=== PATIENT | male | born 1965 | race Caucasian/White ===

== ENCOUNTER 2022-02-06 22:17 | Observation (INO) ==
[2022-02-06] MEDS ORDERED: SODIUM CHLORIDE 0.9% 1000ML 1,000 ML IV STA (22:35)
[2022-02-06] MEDS ORDERED: SODIUM CHLORIDE 0.9% 1000ML 1,000 ML IV ONE (22:35)
[2022-02-06] MEDS ORDERED: SODIUM CHLORIDE 0.9% 1000ML 2,000 ML IV ONE (22:48)
[2022-02-06 22:52] LABS: iSTAT Creatinine 3.1 mg/dl (0.6-1.3); iSTAT Hemoglobin 14.6 g/dl (14.0-18.0); iSTAT Ionized Calcium 0.97 mmol/l (1.12-1.32); iSTAT Potassium 3.9 mmol/L (3.3-5.0)
[2022-02-06 22:53] LABS: Basophils % (auto) 1.3 %; Eosinophils # (auto) 0.21 K/uL (0-0.50); Eosinophils % (auto) 2.7 %; Hematocrit (blood only) 43.4 % (40.1-51.0); Hemoglobin 14.5 g/dl (14.0-18.0); Immature Granulocytes # (auto) 0.04 K/uL (0.00-0.02); Immature Granulocytes % (auto) 0.5 %; Lymphocytes # (auto) 2.94 K/uL (1.2-3.4); Lymphocytes % (auto) 37.8 %; Mean Corpuscular Hemoglobin 29.5 pg (25.0-34.0); Mean Corpuscular Hgb Conc 33.4 g/dL (32.0-36.0); Mean Corpuscular Volume 88.4 fL (80.0-100.0); Mean Platelet Volume 8.8 fL (9.4-12.4); Neutrophils # (auto) 3.79 K/uL (1.4-6.5); Neutrophils % (auto) 48.7 %; Platelet Count 231 K/uL (130-400); RDW Coefficient of Variation 12.8 % (11.5-14.5); RDW Standard Deviation 41.1 fL (36.4-46.3); Red Blood Count 4.91 M/uL (4.63-6.08); White Blood Count 7.78 K/ul (4.8-10.8)
--- NOTE | 2022-02-06 22:54 | Emergency Department Note ---
History of Present Illness General Chief complaint: Chest Pain Stated complaint: SYNCOPE, CHEST PAIN Time Seen by Provider: 02/06/22 22:21 History of Present Illness This 56-year-old presents to the ER complaining of severe chest epigastric pain who passed out at the bar while drinking bourbon today who's blood pressure was 60/40 per EMS Location: Chest epigastric left upper quadrant Quality: Painful Severity: Moderate Duration: Tonight Timing: Tonight Context: Patient collapsed at the bar and was brought in Modifying factors: better with rest; worse with activity Patient states has been drinking bourbon today. He is here visiting family. Patient states he developed chest pain and epigastric pain and then passed out at the bar. Patient states he feels weak but no localized deficits. Patient denies fevers, vomiting, diarrhea, recent illness, drug use. Patient states he only drinks on the weekends. Home Medications Medication Instructions Recorded Confirmed Type bupropion HCl 300 mg 24 hr tablet, 300 mg PO DAILY 10/14/18 02/06/22 History extended release lisinopril 40 mg tablet 40 mg PO DAILY 10/14/18 02/06/22 History amlodipine 5 mg tablet 5 mg PO HS 02/06/22 02/06/22 History hydrochlorothiazide 25 mg tablet 25 mg PO DAILY 02/06/22 02/06/22 History omeprazole magnesium 20 mg 20 mg PO DAILY 02/06/22 02/06/22 History tablet,delayed release (Prilosec OTC) Allergies Allergy/AdvReac Type Severity Reaction Status Date / Time No Known Allergies Allergy Verified 02/06/22 23:40 Past Med/Surg History Medical History (Updated 02/07/22 @ 01:45 by Nikolas De La Vega MD) Anxiety Depression HTN (hypertension) Panic attacks Surgical History (Updated 02/06/22 @ 22:50 by Jennifer Huang PA-C) History of appendectomy Social History Smoking Status: Unknown if ever smoked Hx Alcohol Use: No Hx Substance Use: No Preferred Language: Setswana Communication Ability: Effective [employer] Required: No Beliefs That Will Affect Care: None Current Living Situation: Other Feels Safe at Home: Yes Safety Concerns: Feels Safe At This Time Review of Systems A total of 10 systems reviewed and were otherwise negative Physical Exam Vital Signs Vital Signs - 24 hr 02/06/22 22:39 02/06/22 22:39 02/06/22 22:39 Pulse Rate 93 H Pulse Rate [Right Finger] 93 H Respiratory Rate 18 18 Respiratory Effort / Characteristics Non-Labored Respiratory Depth Normal Blood Pressure 84/54 L Blood Pressure [Right Arm] 84/54 L Blood Pressure Mean 64 Blood Pressure Mean [Right Arm] 64 Blood Pressure Position [Right Arm] Pulse Oximetry 98 98 Oxygen Delivery Method Room Air Room Air Room Air Sepsis Recent Fever Within 48 Hours No Sepsis New/Unexplained Change in Mental Status No Sepsis Action Taken by Nursing No Action Required Pulse Oximetry Post Tiitration 98 02/06/22 22:39 02/07/22 00:19 Pulse Rate Pulse Rate [Right Finger] 95 H Respiratory Rate 20 Respiratory Effort / Characteristics Non-Labored Spontaneous Respiratory Depth Normal Blood Pressure Blood Pressure [Right Arm] 102/60 Blood Pressure Mean Blood Pressure Mean [Right Arm] 74 Blood Pressure Position [Right Arm] Sitting Pulse Oximetry 98 97 Oxygen Delivery Method Room Air Sepsis Recent Fever Within 48 Hours Sepsis New/Unexplained Change in Mental Status Sepsis Action Taken by Nursing Pulse Oximetry Post Tiitration VITALS: Vitals are noted on the nurse's note and reviewed by myself. Vital signs hypotensive. GENERAL: White male pale diaphoretic, in acute distress SKIN: The skin was without rashes, erythema, edema, or bruising. There is no tenting of the skin. Capillary reflex less than 2 seconds. HEAD: Normocephalic atraumatic. EARS: External auditory canals clear, EYES: Pupils equal round and reactive to light and accommodation. Conjunctivae without injection, sclerae without icterus. Extraocular movements intact. NOSE: Patent, turbinates without inflammation or discharge. No sinus tenderness. MOUTH: Mucous membranes dry. Pharynx without erythema or exudate. Uvula midline. Airway patent. Tongue does not deviate. NECK: Supple without nuchal rigidity. No lymphadenopathy. No thyromegaly. Cervical spine is nontender. No JVD. HEART: Regular rate and rhythm LUNGS: Clear to auscultation bilaterally without wheezes, rales or rhonchi. No retractions or accessory muscle use. ABDOMEN: Positive bowel sounds x 4. Normal tympanic percussion. Soft, tender to palpation epigastric left upper quadrant, without masses or organomegaly. Zamora sign negative. No guarding or rebound tenderness. No CVA tenderness MUSCULOSKELETAL: No muscle atrophy, erythema, or edema noted. Radial and pedal pulses +2 equal and present throughout NEURO: Patient was alert and oriented to person place and time. Normal sensation to light and sharp touch. No focal neurological deficits. Course Administered Medications Lactated Ringer's (Lr) 1,000 mls @ 100 mls/hr IV .Q10H LANCE Stop: 02/07/22 16:59 Last Admin: 02/07/22 03:00 Dose: 100 mls/hr Documented By: ZAIRE Discontinued Medications Sodium Chloride (Nss 1000ml) 1,000 mls @ 999 mls/hr IV .Q1H1M STA Stop: 02/06/22 23:35 Last Infusion: 02/06/22 23:52 Dose: 0 mls/hr Documented By: Admin: 02/06/22 23:00 Dose: 999 mls/hr Documented By: RADHA Sodium Chloride (Nss 1000ml) 1,000 mls @ 999 mls/hr IV .Q1H1M ONE Stop: 02/06/22 23:35 Last Infusion: 02/06/22 23:52 Dose: 0 mls/hr Documented By: Admin: 02/06/22 23:20 Dose: 999 mls/hr Documented By: RADHA Sodium Chloride (Nss 1000ml) 2,000 mls @ 999 mls/hr IV .Q2H1M ONE Stop: 02/07/22 00:48 Last Infusion: 02/06/22 23:52 Dose: 0 mls/hr Documented By: Admin: 02/06/22 23:00 Dose: 999 mls/hr Documented By: RADHA Critical Care Time I have personally spent 35 minutes of critical care time in the direct management of this patient. This includes bedside care, interpretation of diagnostic studies, and testing, discussion with consultants, patient, and family members, and other required patient management activities. This 35 minutes is in excess of all separately billable procedures. Medical Decision Making Medical Records Attestation: I reviewed the patient's medical records. Home Medications Current Medication List: was personally reviewed by me Laboratory Data Attestation: I reviewed the patient's lab results. Result diagrams: 02/06/22 22:30 02/07/22 02:18 Lab Results 02/06/22 02/06/22 02/06/22 Range/Units 22:30 22:30 22:30 WBC 7.78 (4.8-10.8) K/ul RBC 4.91 (4.63-6.08) M/uL Hgb 14.5 (14.0-18.0) g/dl POC Hgb (14.0-18.0) g/dl Hct 43.4 (40.1-51.0) % POC Hct (42-52) % MCV 88.4 (80.0-100.0) fL MCH 29.5 (25.0-34.0) pg MCHC 33.4 (32.0-36.0) g/dL RDW Std Deviation 41.1 (36.4-46.3) fL RDW Coeff of Reta 12.8 (11.5-14.5) % Plt Count 231 (130-400) K/uL MPV 8.8 L (9.4-12.4) fL Immature Gran % (Auto) 0.5 % Neut % (Auto) 48.7 % Lymph % (Auto) 37.8 % [place] % (Auto) 9.0 % Eos % (Auto) 2.7 % Baso % (Auto) 1.3 % Neut # (Auto) 3.79 (1.4-6.5) K/uL Lymph # (Auto) 2.94 (1.2-3.4) K/uL [place] # (Auto) 0.70 (0.24-0.82) K/uL Eos # (Auto) 0.21 (0-0.50) K/uL Baso # (Auto) 0.10 (0-0.2) K/uL Immature Gran # (Auto) 0.04 H (0.00-0.02) K/uL POC Sodium (135-144) mmol/L Sodium 136 (136-145) mmol/L POC Potassium (3.3-5.0) mmol/L Potassium 3.9 (3.5-5.1) mmol/L POC Chloride (101-112) mmol/L Chloride 105 (98-107) mmol/L Carbon Dioxide 20 L (21-32) mmol/L POC Total CO2 (24-31) mmol/L Anion Gap 11 (3-11) POC Anion Gap (16-25) mmol/L POC BUN (7-18) mg/dl BUN 33 H (6-23) mg/dl Creatinine 2.66 H (0.6-1.4) mg/dl POC Creatinine (0.6-1.3) mg/dl Est Cr Clr Drug Dosing 35.5 ml/min Est GFR ( Amer) 29.7 ml/min Est GFR (Non-Af Amer) 25.7 ml/min BUN/Creatinine Ratio 12.4 (10-20) Glucose 103 H (70-99(Fasting)) mg/dl POC Glucose (other) (70-99) mg/dl Lactate (0.4-2.0) mmol/L Calcium 8.0 L (8.5-10.1) mg/dl POC Ioniz Calcium Naman (1.12-1.32) mmol/l Total Bilirubin 0.5 (0.2-1.0) mg/dl AST 22 (13-39) U/L ALT 28 (7-52) U/L Alkaline Phosphatase 51 (34-104) U/L Total Creatine Kinase 158 (30-223) U/L Troponin I High Sens 2.8 (0-20) pg/ml Total Protein 5.9 L (6.0-8.3) gm/dl Albumin 3.8 (3.4-5.0) gm/dl Globulin 2.1 L (2.5-4.0) gm/dl Albumin/Globulin Ratio 1.8 (0.9-2) Lipase 101 H (11-82) U/L Ethyl Alcohol mg/dL 123.6 H (<10.0) mg/dl SARS-CoV-2, RNA, NAAT (NEGATIVE) 02/06/22 02/06/22 02/07/22 Range/Units 22:39 23:50 00:10 WBC (4.8-10.8) K/ul RBC (4.63-6.08) M/uL Hgb (14.0-18.0) g/dl POC Hgb 14.6 (14.0-18.0) g/dl Hct (40.1-51.0) % POC Hct 43 (42-52) % MCV (80.0-100.0) fL MCH (25.0-34.0) pg MCHC (32.0-36.0) g/dL RDW Std Deviation (36.4-46.3) fL RDW Coeff of Reta (11.5-14.5) % Plt Count (130-400) K/uL MPV (9.4-12.4) fL Immature Gran % (Auto) % Neut % (Auto) % Lymph % (Auto) % [place] % (Auto) % Eos % (Auto) % Baso % (Auto) % Neut # (Auto) (1.4-6.5) K/uL Lymph # (Auto) (1.2-3.4) K/uL [place] # (Auto) (0.24-0.82) K/uL Eos # (Auto) (0-0.50) K/uL Baso # (Auto) (0-0.2) K/uL Immature Gran # (Auto) (0.00-0.02) K/uL POC Sodium 139 (135-144) mmol/L Sodium (136-145) mmol/L POC Potassium 3.9 (3.3-5.0) mmol/L Potassium (3.5-5.1) mmol/L POC Chloride 104 (101-112) mmol/L Chloride (98-107) mmol/L Carbon Dioxide (21-32) mmol/L POC Total CO2 19 L (24-31) mmol/L Anion Gap (3-11) POC Anion Gap 20.0 (16-25) mmol/L POC BUN 31 H (7-18) mg/dl BUN (6-23) mg/dl Creatinine (0.6-1.4) mg/dl POC Creatinine 3.1 H (0.6-1.3) mg/dl Est Cr Clr Drug Dosing ml/min Est GFR ( Amer) ml/min Est GFR (Non-Af Amer) ml/min BUN/Creatinine Ratio (10-20) Glucose (70-99(Fasting)) mg/dl POC Glucose (other) 108 H (70-99) mg/dl Lactate 2.0 (0.4-2.0) mmol/L Calcium (8.5-10.1) mg/dl POC Ioniz Calcium Naman 0.97 L (1.12-1.32) mmol/l Total Bilirubin (0.2-1.0) mg/dl AST (13-39) U/L ALT (7-52) U/L Alkaline Phosphatase (34-104) U/L Total Creatine Kinase (30-223) U/L Troponin I High Sens (0-20) pg/ml Total Protein (6.0-8.3) gm/dl Albumin (3.4-5.0) gm/dl Globulin (2.5-4.0) gm/dl Albumin/Globulin Ratio (0.9-2) Lipase (11-82) U/L Ethyl Alcohol mg/dL (<10.0) mg/dl SARS-CoV-2, RNA, NAAT NEGATIVE (NEGATIVE) 02/07/22 Range/Units 00:10 WBC (4.8-10.8) K/ul RBC (4.63-6.08) M/uL Hgb (14.0-18.0) g/dl POC Hgb (14.0-18.0) g/dl Hct (40.1-51.0) % POC Hct (42-52) % MCV (80.0-100.0) fL MCH (25.0-34.0) pg MCHC (32.0-36.0) g/dL RDW Std Deviation (36.4-46.3) fL RDW Coeff of Reta (11.5-14.5) % Plt Count (130-400) K/uL MPV (9.4-12.4) fL Immature Gran % (Auto) % Neut % (Auto) % Lymph % (Auto) % [place] % (Auto) % Eos % (Auto) % Baso % (Auto) % Neut # (Auto) (1.4-6.5) K/uL Lymph # (Auto) (1.2-3.4) K/uL [place] # (Auto) (0.24-0.82) K/uL Eos # (Auto) (0-0.50) K/uL Baso # (Auto) (0-0.2) K/uL Immature Gran # (Auto) (0.00-0.02) K/uL POC Sodium (135-144) mmol/L Sodium (136-145) mmol/L POC Potassium (3.3-5.0) mmol/L Potassium (3.5-5.1) mmol/L POC Chloride (101-112) mmol/L Chloride (98-107) mmol/L Carbon Dioxide (21-32) mmol/L POC Total CO2 (24-31) mmol/L Anion Gap (3-11) POC Anion Gap (16-25) mmol/L POC BUN (7-18) mg/dl BUN (6-23) mg/dl Creatinine (0.6-1.4) mg/dl POC Creatinine (0.6-1.3) mg/dl Est Cr Clr Drug Dosing ml/min Est GFR ( Amer) ml/min Est GFR (Non-Af Amer) ml/min BUN/Creatinine Ratio (10-20) Glucose (70-99(Fasting)) mg/dl POC Glucose (other) (70-99) mg/dl Lactate (0.4-2.0) mmol/L Calcium (8.5-10.1) mg/dl POC Ioniz Calcium Naman (1.12-1.32) mmol/l Total Bilirubin (0.2-1.0) mg/dl AST (13-39) U/L ALT (7-52) U/L Alkaline Phosphatase (34-104) U/L Total Creatine Kinase (30-223) U/L Troponin I High Sens 2.5 (0-20) pg/ml Total Protein (6.0-8.3) gm/dl Albumin (3.4-5.0) gm/dl Globulin (2.5-4.0) gm/dl Albumin/Globulin Ratio (0.9-2) Lipase (11-82) U/L Ethyl Alcohol mg/dL (<10.0) mg/dl SARS-CoV-2, RNA, NAAT (NEGATIVE) Imaging Data Attestation: I personally reviewed and interpreted this imaging study as follows: Radiologist's Impression: Abdomen/Pelvis CT 02/06/22 22:35 CT abd pelvis wo con CLINICAL HISTORY: severe epigastric pain, syncope, hypotensive TECHNIQUE: Helical axial images of the abdomen and pelvis were obtained. Automated dose lowering techniques and/or adjustment according to patient size were utilized for this exam. This exam was performed without intravenous contrast. COMPARISON: None available at the time of this dictation. FINDINGS: Lower chest: For findings above the diaphragm, please see CT chest performed same day. Liver: Unremarkable. No focal lesions are seen. Gallbladder and biliary tree: No calcified gallstones. Normal caliber wall. No intra- or extrahepatic biliary ductal dilation. Pancreas: Unremarkable, no focal lesions. Spleen: Splenule is incidentally noted. Adrenals: Unremarkable. Kidneys and ureters: Perinephric stranding is noted bilaterally. Bladder: Limited evaluation due to underdistention. Reproductive organs: Unremarkable. Bowel: Diverticulosis is seen without evidence of diverticulitis. There is a small hiatal hernia. Fatty infiltration is noted in the wall of the colon and duodenum which can be seen in inflammatory bowel disease. Lymph nodes Retroperitoneal: Unremarkable. Pelvic: Unremarkable. Mesenteric: Unremarkable. Peritoneum: Normal. Vessels: Unremarkable. Diminutive appearance of the inferior vena cava at the level of the liver which can be seen in hypovolemia. Abdominal wall: Bilateral fat-containing inguinal hernias are seen. Bones: Degenerative changes in the visualized spine. IMPRESSION: 1. No acute abnormalities are seen. There is flattening of the IVC which can be seen in hypovolemia. 2. A hiatal hernia is seen, clinical correlation for reflux is recommended in this patient with epigastric pain. ACT 112: Negative or not required by law. Electronically signed by: Bear Sage M.D. 02/06/2022 11:[address] 02/06/22 22:35 CT chest diagnostic wo con CLINICAL HISTORY: severe epigastric pain, syncope, hypotensive TECHNIQUE: Multidetector row helical CT of the chest was performed. Coronal and sagittal reformations were obtained. Automated dose lowering techniques and/or adjustment according to patient size were utilized for this exam. CT DOSE: 889.65 mGy.cm Comparison: Comparison is made to chest radiograph 02/06/2022 and 11 FINDINGS: Lungs and pleura: Atelectasis versus scarring is seen in the dependent portions of the lungs. Heart and pericardium: Heart size is normal. No pericardial effusion. Vessels: Unremarkable. Incidentally noted is a tiny locule of air in the venous system likely due to venous injection. Mediastinum and roseann: Unremarkable. Chest wall and lower neck: Unremarkable. Abdomen: For findings below the diaphragm, please refer to CT of the abdomen dated the same. Bones: Degenerative changes in the thoracic spine. IMPRESSION: Unremarkable evaluation of the chest. ACT 112: Negative or not required by law. Electronically signed by: Bear Sage M.D. 02/06/2022 11:24 PM MDM Narrative Prior records/ancillary studies reviewed. Triage Nursing notes reviewed. Additional history obtained from nursing. The patient's history was concerning for syncope. Differential diagnosis: Etiologies such as vasovagal event, infection, hypoglycemia, electrolyte abnormalities, cardiac sources, intracerebral event, toxicologic, neurologic, as well as others were entertained. Physical examination: As above ER treatment provided: IV hydration with normal saline x3 L On reassessment the patient felt better. Emergent FAST POCUS performed by me. Subxiphoid view and parasternal long shows no pericardial effusion or tamponade. Abdominal views demonstrate no free fluid in the hepatorenal space, splenorenal space, or around the bladder. No free fluid. Normal FAST per my interpretation. An order was placed for continuous cardiac monitoring. The monitor shows a rate of 60-1 50 with a sinus rhythm. Diagnostics interpretation by me: #1 ECG: Ordered for syncope EKG: Normal sinus, normal intervals, no acute ST-T wave changes. Impression normal sinus rhythm interpreted by myself I think arrhythmia is unlikely. EKG shows normal sinus rhythm with no interval abnormalities such as QT prolongation or WPW. There are no findings to suggest Brugada syndrome. Cardiac monitoring in the emergency department reveals no tachycardic or bradycardic dysrhythmia. Hypertrophic cardiomyopathy was considered but there are no clear historical elements pointing toward this. EKG is not suggestive. The QRS voltage is not extremely large and there are no suggestive Q waves. #2 ECG: Ordered for CP EKG: Normal sinus, normal intervals, no acute ST-T wave changes. Impression normal sinus rhythm interpreted by myself I think arrhythmia is unlikely. EKG shows normal sinus rhythm with no interval abnormalities such as QT prolongation or WPW. There are no findings to suggest Brugada syndrome. Cardiac monitoring in the emergency department reveals no tachycardic or bradycardic dysrhythmia. Hypertrophic cardiomyopathy was considered but there are no clear historical elements pointing toward this. EKG is not suggestive. The QRS voltage is not extremely large and there are no suggestive Q waves. The labs revealed i-STAT shows acute renal failure with creat of 3.1 Imaging studies: As above Consultation: A consultation was placed with the hospitalist. The case was discussed and diagnostics were reviewed. The patient was evaluated in the ER for further treatment. This appears to be consistent with acute renal failure with dehydration and hypotension. Blood pressure improved with fluids. Medicine is consulted. He will be admitted.. Patient was reassessed multiple times. He was feeling better. Patient denies taking any extra blood pressure medication tonight. By the evaluation outlined above emergent etiologies such as hypoglycemia, electrolyte abnormalities, intracerebral event, toxicologic, neurologic,as well as others were deemed relatively unlikely. The pt informed about the findings as listed above. All questions were answered and pleased with the treatment. The chart was completed utilizing [employer] voice recognition software. Grammatical errors, random word insertions, pronoun errors, and incomplete sentences are an occassional consequence of this system due to software l imitations, ambient noise, and hardware issues. Any formal questions or concerns about the content, text, or information contained within the body of this dictation should be directly addressed to the physician assistant director of financial aid for clarification. Impression & Plan Acute renal failure (ARF), Chest pain, Acute hypotension, Acute dehydration, Syncope Discharge Plan Visit Data Chief Complaint: Chest Pain Stated Complaint: SYNCOPE, CHEST PAIN ED Provider: Krishna Turner ED Midlevel Provider: Jennifer Huang Discharge Problem: Acute renal failure (ARF), Chest pain, Acute hypotension, Acute dehydration, Syncope Patient Disposition: Admitted As Inpatient Condition: Fair Discharge Instructions Interventions: ED Discharge Assessment Last Done: 02/07/22 01:27 : Acute renal failure (ARF) Qualifiers: Acute renal failure type: unspecified Qualified Code(s): N17.9 - Acute kidney failure, unspecified
[2022-02-06 23:13] LABS: Albumin Globulin Ratio 1.8 (0.9-2); Albumin Level 3.8 gm/dl (3.4-5.0); BUN Creatinine Ratio 12.4 (10-20); Bilirubin,Total 0.5 mg/dl (0.2-1.0); Creatinine Clr Calc Pharmacy 35.5 ml/min; Est GFR (African American) 29.7 ml/min; Est GFR (Non-African American) 25.7 ml/min; Globulin 2.1 gm/dl (2.5-4.0); Potassium 3.9 mmol/L (3.5-5.1); Total Protein 5.9 gm/dl (6.0-8.3)
[2022-02-06 23:18] LABS: Troponin I High Sensitivity 2.8 pg/ml (0-20)
--- NOTE | 2022-02-06 23:26 | CT Scan Report ---
CT chest diagnostic wo con CLINICAL HISTORY: severe epigastric pain, syncope, hypotensive TECHNIQUE: Multidetector row helical CT of the chest was performed. Coronal and sagittal reformations were obtained. Automated dose lowering techniques and/or adjustment according to patient size were u tilized for this exam. CT DOSE: 889.65 mGy.cm Comparison: Comparison is made to chest radiograph 02/06/2022 and 11 FINDINGS: Lungs and pleura: Atelectasis versus scarring is seen in the dependent portions of the lungs. Heart and pericardium: Heart size is normal. No pericardial effusion. Vessels: Unremarkable. Incidentally noted is a tiny locule of air in the venous system likely due to venous injection. Mediastinum and roseann: Unremarkable. Chest wall and lower neck: Unremarkable. Abdomen: For findings below the diaphragm, please refer to CT of the abdomen dated the same. Bones: Degenerative changes in the thoracic spine. IMPRESSION: Unremarkable evaluation of the chest. ACT 112: Negative or not required by law. Electronically signed by: Bear Sage M.D. 02/06/2022 11:24 PM
--- NOTE | 2022-02-06 23:35 | CT Scan Report ---
CT abd pelvis wo con CLINICAL HISTORY: severe epigastric pain, syncope, hypotensive TECHNIQUE: Helical axial images of the abdomen and pelvis were obtained. Automated dose lowering tech niques and/or adjustment according to patient size were utilized for this exam. This exam was perfor med without intravenous contrast. COMPARISON: None available at the time of this dictation. FINDINGS: Lower chest: For findings above the diaphragm, please see CT chest performed same day. Liver: Unremarkable. No focal lesions are seen. Gallbladder and biliary tree: No calcified gallstones. Normal caliber wall. No intra- or extrahepatic biliary ductal dilation. Pancreas: Unremarkable, no focal lesions. Spleen: Splenule is incidentally noted. Adrenals: Unremarkable. Kidneys and ureters: Perinephric stranding is noted bilaterally. Bladder: Limited evaluation due to underdistention. Reproductive organs: Unremarkable. Bowel: Diverticulosis is seen without evidence of diverticulitis. There is a small hiatal hernia. Fat ty infiltration is noted in the wall of the colon and duodenum which can be seen in inflammatory danyelle l disease. Lymph nodes Retroperitoneal: Unremarkable. Pelvic: Unremarkable. Mesenteric: Unremarkable. Peritoneum: Normal. Vessels: Unremarkable. Diminutive appearance of the inferior vena cava at the level of the liver whic h can be seen in hypovolemia. Abdominal wall: Bilateral fat-containing inguinal hernias are seen. Bones: Degenerative changes in the visualized spine. IMPRESSION: 1. No acute abnormalities are seen. There is flattening of the IVC which can be seen in hypovolemia. 2. A hiatal hernia is seen, clinical correlation for reflux is recommended in this patient with epig astric pain. ACT 112: Negative or not required by law. Electronically signed by: Bear Sage M.D. 02/06/2022 11:33 PM
[2022-02-07] MEDS ORDERED: POLYETHYLENE (MIRALAX) 17 GM PACK PO PRN (00:36)
--- NOTE | 2022-02-07 01:29 | History & Physical Report ---
Date of Service February 07, 2022 Assessment & Plan (1) Syncope: Plan: - unclear etiology at this time - does not appear to be cardiac - possible vasovagul episode - s/p 4L IVF in ED with initial improvement but again hypotensive - unclear if related to overdosing of BP medications (unintentional) - pancreatitis not likely as patient without n/v, abdominal pain, CT findings of pancreatitis, Lipase on 101 - blood cultures and UA ordered - WBC wnl - no signs of symptoms of infection - PCU admission for now - monitor closely for infection (2) Acute hypotension: Plan: - unclear etiology as above - s/p 4L IVF in ED - continue on 100cc/hr - follow infectious work up - will monitor off abx for now - low threshold for initiating abx (3) Acute kidney injury superimposed on CKD: Plan: - likely due to hypotension and hypovolemia - IVF resuscitation as above - continue IVF - strict I/O - trend Cr (4) Hypocalcemia: Plan: - unclear etiology - ?setting of hypotension vs sepsis - vitamin D, PTH sent - monitor on morning labs (5) HTN (hypertension): Plan: - takes lisinopril, HCTZ, amlodipine - will hold in the setting of hypotension - restart as tolerated - may need dose adjustment if felt to be related to current presentation (6) Depression: Plan: - continue home medication Plan DVT ppx: heparin SQ Code Status: Full Code Dispo: PCU Nikolas De La Vega MD [facility] Medicine Admission and Anticipated Discharge Date Admission Date: 02/07/2022 History of Present Illness Chief Complaint: snycope Primary Care Provider: NO PCP The patient is a 56 year old man with pmh HTN, GERD, depression/anxiety who presented after syncopal episode. He reports that he [place] here [place] with his family. They had lunch then went to dinner and during dinner felt as if he were going to pass out and then remembers waking up on the floor. He denied chest pain, palpitations, shortness of breath, n/v/d, cough, fever or chills, dysuria, abdominal pain prior to this episode. He does report some spasm like pain in his middle back since his syncopal episode as well as left upper quadrant pain for more than year that is still present. He feels better since receiving IVF in the ED. He reports taking all three of his blood pressure medications this morning as usual and felt well throughout the day. He reports eating well at lunch and dinner. He had some drinks at dinner. He reports drinking about 1 alcoholic drink daily and maybe a few more on weekends. Denies tobacco use or other drug use. Reports having a similar episode determined to be vasovagal episode with transient hypotension, not requiring hospitalization at that time. In the ED, vitals were significant for HR 90s, BP 80s-100/50s. Labs were significant for WBC 7.78, BUN 33, Cr 2.66 (baseline ? 1.6 from 10/2018), Ca 8.0, Alb 3.8, lipase 101, BAL 123. CT-AP showed IVC flattening, hiatal hernia. CT chest was unremarkable. He was given 4L IVF and admitted to medicine. Allergies Allergy/AdvReac Type Severity Reaction Status Date / Time No Known Allergies Allergy Verified 02/06/22 23:40 Home Medications Medication Instructions Recorded Confirmed Type bupropion HCl 300 mg 24 hr tablet, 300 mg PO DAILY 10/14/18 02/06/22 History extended release lisinopril 40 mg tablet 40 mg PO DAILY 10/14/18 02/06/22 History amlodipine 5 mg tablet 5 mg PO HS 02/06/22 02/06/22 History hydrochlorothiazide 25 mg tablet 25 mg PO DAILY 02/06/22 02/06/22 History omeprazole magnesium 20 mg 20 mg PO DAILY 02/06/22 02/06/22 History tablet,delayed release (Prilosec OTC) Past Med/Surg History Medical History (Updated 02/07/22 @ 01:45 by Nikolas De La Vega MD) Anxiety Depression HTN (hypertension) Panic attacks Surgical History (Updated 02/06/22 @ 22:50 by Jennifer Huang PA-C) History of appendectomy Social History Smoking Status: Unknown if ever smoked Hx Alcohol Use: No Hx Substance Use: No Preferred Language: Lao Communication Ability: Effective 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 Required: No Beliefs That Will Affect Care: None Current Living Situation: Other Feels Safe at Home: Yes Safety Concerns: Feels Safe At This Time Review of Systems Review of Systems: All systems reviewed & are unremarkable except as noted in Subjective Physical Exam Constitutional: WD/WN, vitals as above well developed; no acute distress, not ill appearing and not intoxicated appearing Eyes: PERRL, conjunctivae normal, anicteric sclerae ENMT: external ear and nose normal, oropharynx normal Neck: trachea midline, no thyromegaly Respiratory: normal respiratory effort, lungs clear to auscultation Cardiovascular: RRR, no murmur, no edema Gastrointestinal (Abdomen): normal bowel sounds, soft, nontender, no hepatosplenomegaly Musculoskeletal: no cyanosis or clubbing, extremities motor strength 5/5 Skin: no rashes, warm and dry Neurologic: patellar DTR's 2+ bilat, sensation intact and PERRL, EOMI, accommodation nl, no face palsy, no dysarthria Psychiatric: A+Ox3, euthymic affect Results & Data Results & Data ([facility]) Vital Signs (Past 12 Hours) Vital Signs Pulse Pulse Resp BP BP Pulse Ox O2 Del Method 02/07/22 01:03 86 18 81/45 L 92 Room Air 02/07/22 00:19 95 H 20 102/60 97 02/06/22 22:39 98 Room Air 02/06/22 22:39 93 H 18 84/54 L 98 Room Air 02/06/22 22:39 Room Air 02/06/22 22:39 93 H 18 84/54 L 98 Room Air Laboratory Results Short CBC 02/06/22 Range/Units 22:30 WBC 7.78 (4.8-10.8) K/ul Hgb 14.5 (14.0-18.0) g/dl Hct 43.4 (40.1-51.0) % Plt Count 231 (130-400) K/uL BMP 02/06/22 22:30 Sodium 136 Potassium 3.9 Chloride 105 Carbon Dioxide 20 L BUN 33 H Creatinine 2.66 H Glucose 103 H Calcium 8.0 L Cardiac Enzymes 02/06/22 Range/Units 22:30 Total Creatine Kinase 158 (30-223) U/L Liver Function 02/06/22 Range/Units 22:30 Total Bilirubin 0.5 (0.2-1.0) mg/dl AST 22 (13-39) U/L ALT 28 (7-52) U/L Alkaline Phosphatase 51 (34-104) U/L Albumin 3.8 (3.4-5.0) gm/dl Diagnostic Findings Abdomen/Pelvis CT 02/06/22 22:35 CT abd pelvis wo con CLINICAL HISTORY: severe epigastric pain, syncope, hypotensive TECHNIQUE: Helical axial images of the abdomen and pelvis were obtained. Automated dose lowering techniques and/or adjustment according to patient size were utilized for this exam. This exam was performed without intravenous contrast. COMPARISON: None available at the time of this dictation. FINDINGS: Lower chest: For findings above the diaphragm, please see CT chest performed same day. Liver: Unremarkable. No focal lesions are seen. Gallbladder and biliary tree: No calcified gallstones. Normal caliber wall. No intra- or extrahepatic biliary ductal dilation. Pancreas: Unremarkable, no focal lesions. Spleen: Splenule is incidentally noted. Adrenals: Unremarkable. Kidneys and ureters: Perinephric stranding is noted bilaterally. Bladder: Limited evaluation due to underdistention. Reproductive organs: Unremarkable. Bowel: Diverticulosis is seen without evidence of diverticulitis. There is a small hiatal hernia. Fatty infiltration is noted in the wall of the colon and duodenum which can be seen in inflammatory bowel disease. Lymph nodes Retroperitoneal: Unremarkable. Pelvic: Unremarkable. Mesenteric: Unremarkable. Peritoneum: Normal. Vessels: Unremarkable. Diminutive appearance of the inferior vena cava at the level of the liver which can be seen in hypovolemia. Abdominal wall: Bilateral fat-containing inguinal hernias are seen. Bones: Degenerative changes in the visualized spine. IMPRESSION: 1. No acute abnormalities are seen. There is flattening of the IVC which can be seen in hypovolemia. 2. A hiatal hernia is seen, clinical correlation for reflux is recommended in this patient with epigastric pain. ACT 112: Negative or not required by law. Electronically signed by: Bear Sage M.D. 02/06/2022 11:[address] 02/06/22 22:35 CT chest diagnostic wo con CLINICAL HISTORY: severe epigastric pain, syncope, hypotensive TECHNIQUE: Multidetector row helical CT of the chest was performed. Coronal and sagittal reformations were obtained. Automated dose lowering techniques and/or adjustment according to patient size were utilized for this exam. CT DOSE: 889.65 mGy.cm Comparison: Comparison is made to chest radiograph 02/06/2022 and 11 FINDINGS: Lungs and pleura: Atelectasis versus scarring is seen in the dependent portions of the lungs. Heart and pericardium: Heart size is normal. No pericardial effusion. Vessels: Unremarkable. Incidentally noted is a tiny locule of air in the venous system likely due to venous injection. Mediastinum and roseann: Unremarkable. Chest wall and lower neck: Unremarkable. Abdomen: For findings below the diaphragm, please refer to CT of the abdomen dated the same. Bones: Degenerative changes in the thoracic spine. IMPRESSION: Unremarkable evaluation of the chest. ACT 112: Negative or not required by law. Electronically signed by: Bear Sage M.D. 02/06/2022 11:24 PM Medications Administered Current Inpatient Medications Acetaminophen (Acetaminophen 325 Mg Tab) 650 mg PO Q4H PRN PRN Reason: Pain or Fever Stop: 03/09/22 00:35 Bupropion HCl (Bupropion Xl 300 Mg Tabcr) 300 mg PO DAILY [facility] Stop: 03/09/22 08:59 Heparin Sodium (Porcine) (Heparin Sod 5,000 Unit/0.5 Ml Vial) 5,000 units SQ Q8 LANCE Stop: 03/09/22 05:59 Non-Formulary Medication (Omeprazole Magnesium [Prilosec Otc]) 20 mg PO DAILY L[facility] Stop: 03/09/22 08:59 Polyethylene Glycol (Polyethylene (Miralax) 17 Gm Pack) 17 gm PO DAILY PRN PRN Reason: Constipation Stop: 03/09/22 00:35 Code Status & VTE Plan Code Status Full Code VTE Prophylaxis Plan VTE Prophylaxis will be ordered: Yes
[2022-02-07] MEDS: LACTATED RINGER'S 1,000 ML IV SCH ×2 (03:00→11:48)
[2022-02-07 03:01] LABS: Albumin Globulin Ratio 1.7 (0.9-2); Albumin Level 3.3 gm/dl (3.4-5.0); Bilirubin,Total 0.4 mg/dl (0.2-1.0); Calcium 7.5 mg/dl (8.5-10.1); Creatinine Clr Calc Pharmacy 46.1 ml/min; Est GFR (African American) 40.3 ml/min; Est GFR (Non-African American) 34.8 ml/min; Globulin 1.9 gm/dl (2.5-4.0); Potassium 3.8 mmol/L (3.5-5.1); Total Protein 5.2 gm/dl (6.0-8.3)
[2022-02-07] MEDS: HEPARIN SOD 5,000 UNIT/0.5 ML VIAL SQ SCH ×3 (06:13→20:49)
--- NOTE | 2022-02-07 07:21 | Electrocardiogram Report ---
Test Reason : Blood Pressure : / mmHG Vent. Rate : 083 BPM Atrial Rate : 083 BPM P-R Int : 148 ms QRS Dur : 086 ms QT Int : 372 ms P-R-T Axes : 038 -05 019 degrees QTc Int : 437 ms Normal sinus rhythm Normal ECG When compared with ECG of 14-OCT-2018 13:27, No significant change was found Confirmed by Nick Foster ([id number]) on 02/07/2022 7:21:36 AM Referred By: REFERRED SELF Confirmed By:Kevin Foster
--- NOTE | 2022-02-07 07:23 | Electrocardiogram Report ---
Test Reason : Blood Pressure : / mmHG Vent. Rate : 098 BPM Atrial Rate : 098 BPM P-R Int : 152 ms QRS Dur : 088 ms QT Int : 374 ms P-R-T Axes : 050 -13 031 degrees QTc Int : 477 ms Normal sinus rhythm Normal ECG When compared with ECG of 06-FEB-2022 22:35, (unconfirmed) No significant change was found Confirmed by Nick Foster ([id number]) on 02/07/2022 7:23:15 AM Referred By: REFERRED SELF Confirmed By:Kevin Foster
--- NOTE | 2022-02-07 07:58 | XRay Report ---
XR chest 1V portable HISTORY: Atypical Chest Pain COMPARISON: Chest 02/06/2022. FINDINGS: The lungs are clear. Cardiac silhouette is normal in size. No pleural effusions. No pneumot horax. IMPRESSION: No acute process. ACT 112: Negative or not required by law. Electronically signed by: Efren Weller M.D. 02/07/2022 7:56 AM
[2022-02-07] MEDS: buPROPion XL 300 MG TABCR PO SCH (08:17)
[2022-02-07] MEDS: PANTOprazole 40 MG TAB PO SCH (08:17)
[2022-02-07] MEDS: CHOLECALCIFEROL 1,000 UNITS 25 MCG TAB PO SCH (08:23)
[2022-02-07] MEDS: CALCIUM CARBONATE 1250MG TAB PO SCH ×2 (08:23→20:47)
[2022-02-07 10:25] LABS: Amphetamines+Metham, Urine Neg (Neg); Barbiturates, Urine Neg (Neg); Benzodiazepine, Urine Neg (Neg); Cocaine, Urine Neg (Neg); MDMA (Ecstacy), Urine Pos (Neg); Methadone, Urine Neg (Neg); Opiate, Urine Neg (Neg); Phencyclidine, Urine Neg (Neg)
[2022-02-07 11:08] LABS: Appearance Urine Clear (Clear); Bilirubin Urine Negative (Negative); Blood Urine Negative (Negative); Color Urine Yellow; Glucose Urine UA Negative (Negative); Ketones Urine Negative (Negative); Leukocyte Esterase Urine Negative (Negative); Nitrite Urine Negative (Negative); Protein Urine Negative (Negative); Specific Gravity Urine 1.014 (1.000-1.030); Urobilinogen Urine Negative (Negative); pH Urine 5.5 (4.5-7.5)
[2022-02-07] MEDS: ACETAMINOPHEN 325 MG TAB PO PRN ×2 (11:50→20:46)
--- NOTE | 2022-02-07 13:59 | Hospitalist Progress Note ---
Date of Service February 07, 2022 Assessment & Plan (1) Syncope: Plan: - Likely secondary to postural hypotension due to dehydration - does not appear to be cardiac - possible vasovagul episode - s/p 4L IVF in ED with initial improvement but again hypotensive - unclear if related to overdosing of BP medications (unintentional) - pancreatitis not likely as patient without n/v, abdominal pain, CT findings of pancreatitis, Lipase on 101 - blood cultures pending and UA does not look like an infection -No arrhythmias on monitor -Has been feeling a lot better (2) Acute hypotension: Plan: - Has not been drinking much fluid recently - s/p 4L IVF in ED - continue on 100cc/hr - follow infectious work up-negative so far - will monitor off abx for now - low threshold for initiating abx -Clinically much better and the blood pressure is improving but he still remains tachycardic -Strongly advised to drink more fluid and IV fluid will be continued (3) Acute kidney injury superimposed on CKD: Plan: - likely due to hypotension and hypovolemia - IVF resuscitation as above - continue IVF - strict I/O -Creatinine was 2.66 on admission and has improved to 2.07 -We will monitor PRP (4) Hypocalcemia: Plan: - unclear etiology - ?setting of hypotension vs sepsis - vitamin D, PTH sent - monitor on morning labs (5) HTN (hypertension): Plan: - takes lisinopril, HCTZ, amlodipine - will hold in the setting of hypotension - restart as tolerated - may need dose adjustment if felt to be related to current presentation -Like to hold off hydrochlorothiazide on discharge (6) Depression: Plan: - continue home medication Plan DVT ppx: heparin SQ Code Status: Full Code Dispo: PCU Admission and Anticipated Discharge Date Admission Date: February 07, 2022 Subjective 02/07/2022 The patient was seen and examined in telemetry unit He remains very weak but denies any significant symptoms Has been feeling much better since admission Denies any chest pain, palpitation or shortness of breath and no more dizziness Review of Systems Review of Systems: All systems reviewed and are unremarkable except as noted below Physical Exam Physical Exam: Lying in bed comfortably Constitutional: well developed, well nourished and + ill appearing Eyes: PERRL, conjunctivae normal, anicteric sclerae ENMT: external ear and nose normal, oropharynx normal Neck: trachea midline, no thyromegaly Respiratory: no respiratory distress Auscultation: lungs clear to auscultation bilaterally; no crackles Cardiovascular: Rate/Rhythm: regular rate, regular rhythm and + tachycardic Heart Sounds: normal S1 and normal S2; no murmur Extremities: no edema Gastrointestinal (Abdomen): Inspection/Auscultation: normal bowel sounds; abdomen not distended Percussion/Palpation: abdomen soft; abdomen nontender Musculoskeletal: Head/Neck/Chest: normocephalic and head atraumatic Extremities: extremities normal to inspection Neurologic: normal touch/pain/proprioception and moves all extremities; no focal motor deficits Psychiatric: A+Ox3, euthymic affect Lymphatic: no cervical or axillary lymphadenopathy Results & Data Results & Data ([facility]) Vital Signs (Past 12 Hours) Vital Signs Temp Pulse Pulse Resp BP BP Pulse Ox 02/07/22 10:44 37.3 C 102 H 20 133/79 96 02/07/22 07:28 37.0 C 105 H 20 106/63 95 02/07/22 07:12 83 02/07/22 03:00 36.6 C 83 18 103/52 L 96 O2 Del Method 02/07/22 10:44 Room Air 02/07/22 07:28 Room Air 02/07/22 07:12 02/07/22 03:00 Room Air Laboratory Results Short CBC 02/06/22 Range/Units 22:30 WBC 7.78 (4.8-10.8) K/ul Hgb 14.5 (14.0-18.0) g/dl Hct 43.4 (40.1-51.0) % Plt Count 231 (130-400) K/uL BMP 02/06/22 02/07/22 22:30 02:18 Sodium 136 139 Potassium 3.9 3.8 Chloride 105 109 H Carbon Dioxide 20 L 21 BUN 33 H 29 H Creatinine 2.66 H 2.07 H D Glucose 103 H 104 H Calcium 8.0 L 7.5 L Cardiac Enzymes 02/06/22 Range/Units 22:30 Total Creatine Kinase 158 (30-223) U/L Liver Function 02/06/22 02/07/22 Range/Units 22:30 02:18 Total Bilirubin 0.5 0.4 (0.2-1.0) mg/dl AST 22 19 (13-39) U/L ALT 28 25 (7-52) U/L Alkaline Phosphatase 51 45 (34-104) U/L Albumin 3.8 3.3 L (3.4-5.0) gm/dl Urine 02/07/22 Range/Units 08:27 Urine Color Yellow Urine Appearance Clear (Clear) Urine pH 5.5 (4.5-7.5) Ur Specific [place] 1.014 (1.000-1.030) Urine Protein Negative (Negative) Urine Glucose (UA) Negative (Negative) Medications Administered Current Inpatient Medications Acetaminophen (Acetaminophen 325 Mg Tab) 650 mg PO Q4H PRN PRN Reason: Pain or Fever Stop: 03/09/22 00:35 Last Admin: 02/07/22 11:50 Dose: 650 mg Bupropion HCl (Bupropion Xl 300 Mg Tabcr) 300 mg PO DAILY [facility] Stop: 03/09/22 08:59 Last Admin: 02/07/22 08:17 Dose: 300 mg Calcium Carbonate (Calcium Carbonate 1250mg Tab) 1,000 mg PO BID LANCE Stop: 02/08/22 08:59 Last Admin: 02/07/22 08:23 Dose: 1,000 mg Heparin Sodium (Porcine) (Heparin Sod 5,000 Unit/0.5 Ml Vial) 5,000 units SQ Q8 LANCE Stop: 03/09/22 05:59 Last Admin: 02/07/22 13:26 Dose: 5,000 units Lactated Ringer's (Lr) 1,000 mls @ 100 mls/hr IV .Q10H LANCE Stop: 02/07/22 16:59 Last Admin: 02/07/22 11:48 Dose: 100 mls/hr Pantoprazole Sodium (Pantoprazole 40 Mg Tab) 40 mg PO DAILY [facility] Stop: 03/09/22 08:59 Last Admin: 02/07/22 08:17 Dose: 40 mg Polyethylene Glycol (Polyethylene (Miralax) 17 Gm Pack) 17 gm PO DAILY PRN PRN Reason: Constipation Stop: 03/09/22 00:35 Vitamin D (Cholecalciferol 1,000 Units 25 Mcg Tab) 1,000 units PO QAM [facility] Stop: 03/09/22 08:59 Last Admin: 02/07/22 08:23 Dose: 1,000 units
[2022-02-08] MEDS: HEPARIN SOD 5,000 UNIT/0.5 ML VIAL SQ SCH (06:07)
[2022-02-08 07:29] LABS: Basophils # (auto) 0.05 K/uL (0-0.2); Basophils % (auto) 1.3 %; Eosinophils # (auto) 0.18 K/uL (0-0.50); Eosinophils % (auto) 4.5 %; Hematocrit (blood only) 41.2 % (40.1-51.0); Hemoglobin 13.8 g/dl (14.0-18.0); Immature Granulocytes # (auto) 0.01 K/uL (0.00-0.02); Immature Granulocytes % (auto) 0.3 %; Lymphocytes # (auto) 1.19 K/uL (1.2-3.4); Lymphocytes % (auto) 29.8 %; Mean Corpuscular Hemoglobin 29.7 pg (25.0-34.0); Mean Corpuscular Hgb Conc 33.5 g/dL (32.0-36.0); Mean Corpuscular Volume 88.8 fL (80.0-100.0); Mean Platelet Volume 8.5 fL (9.4-12.4); Monocytes # (auto) 0.31 K/uL (0.24-0.82); Monocytes % (auto) 7.8 %; Neutrophils # (auto) 2.26 K/uL (1.4-6.5); Neutrophils % (auto) 56.3 %; Platelet Count 158 K/uL (130-400); RDW Standard Deviation 42.5 fL (36.4-46.3); Red Blood Count 4.64 M/uL (4.63-6.08)
[2022-02-08 07:53] LABS: BUN Creatinine Ratio 12.5 (10-20); Calcium 8.6 mg/dl (8.5-10.1); Creatinine Clr Calc Pharmacy 62.4 ml/min; Est GFR (African American) 58.5 ml/min; Est GFR (Non-African American) 50.5 ml/min; Phosphorus 3.1 mg/dl (2.5-4.9)
[2022-02-08] MEDS: PANTOprazole 40 MG TAB PO SCH (08:25)
[2022-02-08] MEDS: buPROPion XL 300 MG TABCR PO SCH (08:25)
[2022-02-08] MEDS: CHOLECALCIFEROL 1,000 UNITS 25 MCG TAB PO SCH (08:25)
--- NOTE | 2022-02-08 09:33 | Hospitalist Progress Note ---
Date of Service February 08, 2022 Assessment & Plan (1) Syncope: Plan: - Likely secondary to postural hypotension due to dehydration - does not appear to be cardiac - possible vasovagul episode - s/p 4L IVF in ED with initial improvement but again hypotensive - unclear if related to overdosing of BP medications (unintentional) - pancreatitis not likely as patient without n/v, abdominal pain, CT findings of pancreatitis, Lipase on 101 - blood cultures pending and UA does not look like an infection -No arrhythmias on monitor -No symptoms reported and has been ambulating in the room and hallway without any symptoms -He has been drinking enough fluid and the creatinine has improved a lot -No more dizziness and no arrhythmia on monitor -He strongly wants to be discharged today (2) Acute hypotension: Plan: - Has not been drinking much fluid recently - s/p 4L IVF in ED - continue on 100cc/hr - follow infectious work up-negative so far - will monitor off abx for now - low threshold for initiating abx -Clinically much better and the blood pressure is improving but he still remains tachycardic -Strongly advised to drink more fluid and IV fluid will be continued -Has been drinking enough fluid and the creatinine is down to 1.52 today -Blood pressure is maintained at 130/81 (3) Acute kidney injury superimposed on CKD: Plan: - likely due to hypotension and hypovolemia - IVF resuscitation as above - continue IVF - strict I/O -Creatinine was 2.66 on admission and has improved to 2.07 -We will monitor PRP -Creatinine improved to 1.52 -He was strongly advised to drink more fluid and we will discontinue his hydrochlorothiazide on discharge (4) Hypocalcemia: Plan: - unclear etiology - ?setting of hypotension vs sepsis - vitamin D, PTH sent-vitamin D level is borderline low with increasing parathormone level -He will be advised to take [id number] vitamin D supplement -Calcium level has been normalized (5) HTN (hypertension): Plan: - takes lisinopril, HCTZ, amlodipine - will hold in the setting of hypotension - restart as tolerated - may need dose adjustment if felt to be related to current presentation -Like to hold off hydrochlorothiazide on discharge (6) Depression: Plan: - continue home medication Plan DVT ppx: heparin SQ Code Status: Full Code Dispo: PCU He will be discharged home this morning Admission and Anticipated Discharge Date Admission Date: February 07, 2022 Subjective 02/07/2022 The patient was seen and examined in telemetry unit He remains very weak but denies any significant symptoms Has been feeling much better since admission Denies any chest pain, palpitation or shortness of breath and no more dizziness 02/08/2022 The patient was seen and examined in telemetry unit He has been feeling much better and denies any symptoms No dizziness, no fever and or chills, no problem with urine and or bowel habit, no dizziness with activities and has been moving around in the room without any symptoms He wants to go home Review of Systems Review of Systems: All systems reviewed and are unremarkable except as noted below Physical Exam Physical Exam: Lying in bed comfortably Constitutional: well developed and well nourished; not ill appearing Eyes: PERRL, conjunctivae normal, anicteric sclerae ENMT: external ear and nose normal, oropharynx normal Neck: trachea midline, no thyromegaly Respiratory: no respiratory distress Auscultation: lungs clear to auscultation bilaterally; no crackles Cardiovascular: Rate/Rhythm: regular rate and regular rhythm; not tachycardic Heart Sounds: normal S1 and normal S2; no murmur Extremities: no edema Gastrointestinal (Abdomen): Inspection/Auscultation: normal bowel sounds; abdomen not distended Percussion/Palpation: abdomen soft; abdomen nontender Musculoskeletal: Head/Neck/Chest: normocephalic and head atraumatic Extremities: extremities normal to inspection Neurologic: normal touch/pain/proprioception and moves all extremities; no focal motor deficits Psychiatric: A+Ox3, euthymic affect Lymphatic: no cervical or axillary lymphadenopathy Results & Data Results & Data ([facility]) Vital Signs (Past 12 Hours) Vital Signs Temp Pulse Pulse Resp BP Pulse Ox O2 Del Method 02/08/22 07:45 36.8 C 88 17 130/81 95 Room Air 02/08/22 03:45 36.8 C 79 18 118/69 95 Room Air 02/07/22 23:13 37.2 C 89 18 131/72 96 Room Air 02/07/22 23:00 85 Laboratory Results Short CBC 02/08/22 Range/Units 07:21 WBC 4.00 L (4.8-10.8) K/ul Hgb 13.8 L (14.0-18.0) g/dl Hct 41.2 (40.1-51.0) % Plt Count 158 (130-400) K/uL BMP 02/08/22 07:21 Sodium 140 Potassium 4.0 Chloride 107 Carbon Dioxide 29 BUN 19 Creatinine 1.52 H D Glucose 94 Calcium 8.6 Urine 02/07/22 Range/Units 08:27 Urine Color Yellow Urine Appearance Clear (Clear) Urine pH 5.5 (4.5-7.5) Ur Specific [place] 1.014 (1.000-1.030) Urine Protein Negative (Negative) Urine Glucose (UA) Negative (Negative) Medications Administered Current Inpatient Medications Acetaminophen (Acetaminophen 325 Mg Tab) 650 mg PO Q4H PRN PRN Reason: Pain or Fever Stop: 03/09/22 00:35 Last Admin: 02/07/22 20:46 Dose: 650 mg Bupropion HCl (Bupropion Xl 300 Mg Tabcr) 300 mg PO DAILY [facility] Stop: 03/09/22 08:59 Last Admin: 02/08/22 08:25 Dose: 300 mg Heparin Sodium (Porcine) (Heparin Sod 5,000 Unit/0.5 Ml Vial) 5,000 units SQ Q8 LANCE Stop: 03/09/22 05:59 Last Admin: 02/08/22 06:07 Dose: Not Given Pantoprazole Sodium (Pantoprazole 40 Mg Tab) 40 mg PO DAILY [facility] Stop: 03/09/22 08:59 Last Admin: 02/08/22 08:25 Dose: 40 mg Polyethylene Glycol (Polyethylene (Miralax) 17 Gm Pack) 17 gm PO DAILY PRN PRN Reason: Constipation Stop: 03/09/22 00:35 Vitamin D (Cholecalciferol 1,000 Units 25 Mcg Tab) 1,000 units PO QAM [facility] Stop: 03/09/22 08:59 Last Admin: 02/08/22 08:25 Dose: 1,000 units
--- NOTE | 2022-02-08 17:27 | Discharge Summary ---
Date of Service February 08, 2022 Admission HPI Per Admitting Provider The patient is a 56 year old man with pmh HTN, GERD, depression/anxiety who presented after syncopal episode. He reports that [place] with [place] family. They had lunch then went to dinner and during dinner felt as if he were going to pass out and then remembers waking up on the floor. He denied chest pain, palpitations, shortness of breath, n/v/d, cough, fever or chills, dysuria, abdominal pain prior to this episode. He does report some spasm like pain in his middle back since his syncopal episode as well as left upper quadrant pain for more than year that is still present. He feels better since receiving IVF in the ED. He reports taking all three of his blood pressure medications this morning as usual and felt well throughout the day. He reports eating well at lunch and dinner. He had some drinks at dinner. He reports drinking about 1 alcoholic drink daily and maybe a few more on weekends. Denies tobacco use or other drug use. Reports having a similar episode determined to be vasovagal episode with transient hypotension, not requiring hospitalization at that time. In the ED, vitals were significant for HR 90s, BP 80s-100/50s. Labs were significant for WBC 7.78, BUN 33, Cr 2.66 (baseline ? 1.6 from 10/2018), Ca 8.0, Alb 3.8, lipase 101, BAL 123. CT-AP showed IVC flattening, hiatal hernia. CT chest was unremarkable. He was given 4L IVF and admitted to medicine. Admission Exam Per Admitting Provider Constitutional: WD/WN, vitals as above well developed; no acute distress, not ill appearing and not intoxicated appearing Eyes: PERRL, conjunctivae normal, anicteric sclerae ENMT: external ear and nose normal, oropharynx normal Neck: trachea midline, no thyromegaly Respiratory: normal respiratory effort, lungs clear to auscultation Cardiovascular: RRR, no murmur, no edema Gastrointestinal (Abdomen): normal bowel sounds, soft, nontender, no hepatosplenomegaly Musculoskeletal: no cyanosis or clubbing, extremities motor strength 5/5 Skin: no rashes, warm and dry Neurologic: patellar DTR's 2+ bilat, sensation intact and PERRL, EOMI, accommodation nl, no face palsy, no dysarthria Psychiatric: A+Ox3, euthymic affect Principal Diagnosis Syncope secondary to hypotension, dehydration with LESLIE-improved Discharge Exam Lying in bed comfortably Constitutional well developed and well nourished; not ill appearing Eyes PERRL, conjunctivae normal, anicteric sclerae ENMT external ear and nose normal, oropharynx normal Neck trachea midline, no thyromegaly Respiratory no respiratory distress Auscultation: lungs clear to auscultation bilaterally; no crackles Cardiovascular Rate/Rhythm: regular rate and regular rhythm; not tachycardic Heart Sounds: normal S1 and normal S2; no murmur Extremities: no edema Gastrointestinal (Abdomen) Inspection/Auscultation: normal bowel sounds; abdomen not distended Percussion/Palpation: abdomen soft; abdomen nontender Musculoskeletal Head/Neck/Chest: normocephalic and head atraumatic Extremities: extremities normal to inspection Neurologic normal touch/pain/proprioception and moves all extremities; no focal motor deficits Psychiatric A+Ox3, euthymic affect Lymphatic no cervical or axillary lymphadenopathy Discharge Data Allergies Allergy/AdvReac Type Severity Reaction Status Date / Time No Known Allergies Allergy Verified 02/06/22 23:40 Consultations 02/07/22 00:24 ED Decision to Admit Stat Ordered Studies 02/06/22 22:35 CT abd pelvis wo con Stat CT chest diagnostic wo con Stat Hospital Course (1) Syncope: - Likely secondary to postural hypotension due to dehydration - does not appear to be cardiac - possible vasovagul episode - s/p 4L IVF in ED with initial improvement but again hypotensive - unclear if related to overdosing of BP medications (unintentional) - pancreatitis not likely as patient without n/v, abdominal pain, CT findings of pancreatitis, Lipase on 101 - blood cultures pending and UA does not look like an infection -No arrhythmias on monitor -No symptoms reported and has been ambulating in the room and hallway without any symptoms -He has been drinking enough fluid and the creatinine has improved a lot -No more dizziness and no arrhythmia on monitor -He strongly wants to be discharged today (2) Acute hypotension: - Has not been drinking much fluid recently - s/p 4L IVF in ED - continue on 100cc/hr - follow infectious work up-negative so far - will monitor off abx for now - low threshold for initiating abx -Clinically much better and the blood pressure is improving but he still remains tachycardic -Strongly advised to drink more fluid and IV fluid will be continued -Has been drinking enough fluid and the creatinine is down to 1.52 today -Blood pressure is maintained at 130/81 (3) Acute kidney injury superimposed on CKD: - likely due to hypotension and hypovolemia - IVF resuscitation as above - continue IVF - strict I/O -Creatinine was 2.66 on admission and has improved to 2.07 -We will monitor PRP -Creatinine improved to 1.52 -He was strongly advised to drink more fluid and we will discontinue his hydrochlorothiazide on discharge (4) Hypocalcemia: - unclear etiology - ?setting of hypotension vs sepsis - vitamin D, PTH sent-vitamin D level is borderline low with increasing parathormone level -He will be advised to take [id number] vitamin D supplement -Calcium level has been normalized (5) HTN (hypertension): - takes lisinopril, HCTZ, amlodipine - will hold in the setting of hypotension - restart as tolerated - may need dose adjustment if felt to be related to current presentation -Like to hold off hydrochlorothiazide on discharge (6) Depression: - continue home medication Plan DVT ppx: heparin SQ Code Status: Full Code Dispo: PCU He will be discharged home this morning Total Time Total Time Spent Total Time Spent (In Minutes): 35 minutes Discharge Plan Discharge Items Patient Disposition: Home - Self-Care Reason For Visit: HYPOTENSION, LESLIE Discharge Diagnosis: Syncope secondary to hypotension, dehydration with LESLIE-improved Condition on Discharge: Good Activity: Resume your previous activity Non-emergency contact: Primary Care Provider Call non-emergency contact if: you have any medication questions and your symptoms worsen Follow-up/Referrals: PCP,NO [Primary Care Provider] - (Strongly advised to make an appointment with his primary care physician within 7 days) Diet: Heart Healthy and Low Sodium (2gm) Addtl Attending Provider Instructions: Please take precautions to avoid falls Try to drink more fluid Your hydrochlorothiazide was stopped due to dehydration Please make an appointment with your primary care physician within 7 days Strongly advised to take [id number] vitamin D supplement Pending Studies at Discharge: No Stand-Alone Forms: My [employer], Smoking Cessation Medications and DC Order Prescriptions: New cholecalciferol (vitamin D3) 25 mcg (1,000 unit) Capsule 1,000 unit PO QAM 30 Days Qty: 30 0RF Continued lisinopril 40 mg tablet 40 mg PO DAILY bupropion HCl 300 mg tablet extended release 24 hr 300 mg PO DAILY amlodipine 5 mg tablet 5 mg PO HS omeprazole magnesium [Prilosec OTC] 20 mg Tablet,Delayed Release (Dr/Ec) 20 mg PO DAILY Discontinued hydrochlorothiazide 25 mg tablet 25 mg PO DAILY Discharge Orders: Discharge Order (Routine); Ordered 02/08/22 Ordered By: Gavin Diaz Admission Data Admit Date/Time: 02/07/22 00:36 Attending Provider: Gavin Daiz Admit Provider: Nikolas De La Vega Primary Care Provider: PCP,NO Other Providers: Nikolas De La Vega Other Interventions: Discharge Summary Assessment (RN) Last Done: 02/08/22 09:45
[2022-02-12 12:56] LABS: MDA negative; MDEA negative; MDMA (Ecstasy) Urine, Confirm negative; Marijuana Quant, GCMS Urine 28 ng/mL (<5)
== END 2022-02-08 11:40 | disposition home or self-care (01) ==
LOC: ED 22:17 → 2E 22:17